=== PATIENT | female | born 1985 | race Caucasian/White ===

== ENCOUNTER 2017-06-18 11:34 | Emergency (ER) | payer MEDICAID, OTHER ==
[2017-06-18 13:34] LABS: URINE BLOOD (Dip) POC 3+ (NEGATIVE); URINE GLUCOSE (Dip) POC Negative (NEGATIVE); URINE KETONES (Dip) POC Negative (NEGATIVE); URINE LEUKOCYTE EST (Dip) POC Negative (NEGATIVE); URINE NITRITE (Dip) POC Negative (NEGATIVE); URINE TOTAL PROTEIN POC Negative (NEGATIVE)
[2017-06-18 13:34] LABS: URINE PH (Dip) POC 6.5 (5.0-8.5)
[2017-06-18] MEDS: KETOROLAC 60 MG INJ IM (13:40)
== END 2017-06-18 15:50 | disposition home or self-care (01) ==
LOC: FTE 11:34
DX: M54.42 Lumbago with sciatica, left side (principal); R31.9 Hematuria, unspecified; F17.210 Nicotine dependence, cigarettes, uncomplicated
CPT/HCPCS: 76775; 81003; 81025; 96372; 99285-25